=== PATIENT | male | born 1965 | race African-American/Black ===

== ENCOUNTER 2020-01-27 14:40 | Emergency (ER) | payer MEDICAID, SELFPAY ==
[~2020-01-27] VITALS: Ht 182.9 cm; Wt 89.1 kg
--- NOTE | 2020-01-27 15:28 | NUR ---
FIRST CONTACT WITH PT. PT HERE FOR BILATERAL SWOLLEN LEGS, PT REPORTS STARTED ABOUT 2-3 WEEKS, PT REPORTS THAT NORMALLY IT RESOLVES BUT THIS TIME ITS NOT. PT DENIES ANY OTHER SX. PT'S AOX4. RESPS EVEN AND UNLABORED. BP/SPO2 MONITORS IN PLACE. CALL LIGHT WITHIN REACH. PA AT BEDSIDE TO EVALUATE AT THIS TIME.
[2020-01-27 16:08] LABS: BASOPHILS # (AUTO) 0.01 x10^3/uL (0-0.1); BASOPHILS % (AUTO) 0 % (0-1); EOSINOPHILS # (AUTO) 0.02 x10^3/uL (0-0.4); EOSINOPHILS % (AUTO) 1 % (1-7); LYMPHOCYTES # (AUTO) 0.78 x10^3/uL (1-3.4); LYMPHOCYTES % (AUTO) 21 % (22-44); MD NO; MEAN CORPUSCULAR HEMOGLOBIN 31.6 pg (27.5-34.5); MEAN CORPUSCULAR HGB CONC 33.1 g/dL (33.2-36.2); MEAN CORPUSCULAR VOLUME 95.6 fL (81-97); MEAN PLATELET VOLUME 6.4 fL (7.4-10.4); MONOCYTES # (AUTO) 0.57 x10^3/uL (0.2-0.8); MONOCYTES % (AUTO) 16 % (2-9); NEUTROPHILS # (AUTO) 2.28 x10^3/uL (1.8-6.8); NEUTROPHILS % (AUTO) 62 % (42-75); PLATELET COUNT 435 x10^3/uL (130-400); RED BLOOD COUNT 4.18 x10^6/uL (4.38-5.82); RED CELL DISTRIBUTION WIDTH 13.5 % (9.4-14.8)
[2020-01-27 16:15] LABS: ALANINE AMINOTRANSFERASE 18 U/L (12-78); ALBUMIN 3.2 g/dL (3.4-5.0); ANION GAP 5 mmol/L (5-15); CALCIUM 8.5 mg/dL (8.5-10.1); CHLORIDE 102 mmol/L (98-107); CREATININE 1.55 mg/dL (0.7-1.3)
[2020-01-27 16:20] LABS: ALKALINE PHOSPHATASE 72 U/L (45-117); BILIRUBIN,TOTAL 0.4 mg/dL (0.2-1.0); TOTAL PROTEIN 8.5 g/dL (6.4-8.2); TROPONIN I < 0.015 ng/mL (0.000-0.045)
[2020-01-27 17:07] VITALS: BP 139/94
--- NOTE | 2020-01-27 17:07 | NUR ---
PT SLEEPING IN [facility]. RESPS EVEN AND UNLABORED. BP/SPO2 MONITORS IN PLACE. CALL LIGHT WITIN SCOOTER.
--- NOTE | 2020-01-27 17:46 | NUR ---
PT STILL SLEEPING IN [facility]. RESPS EVEN AND UNLABORED. BP/SPO2 MONITORS IN PLACE. CALL LIGHT WITIN REACH. AWAITING DC.
== END 2020-01-27 18:40 | disposition home or self-care (01) ==
LOC: ED 18:30
DX: I87.2 Venous insufficiency (chronic) (peripheral) (principal); R07.89 Other chest pain; R60.0 Localized edema; R94.31 Abnormal electrocardiogram [ECG] [EKG]; F17.200 Nicotine dependence, unspecified, uncomplicated
CPT/HCPCS: 36415; 71045; 80053; 83880; 84484; 85025; 93005; 93970; 99285

== ENCOUNTER 2021-04-01 13:42 | Inpatient (IN) | payer MEDICAID ==
[~2021-04-01] VITALS: Ht 182.9 cm; Wt 76.3 kg
--- NOTE | 2021-04-01 14:08 | NUR ---
THIS IS A 55 YR OLD MALE WHO STATES [place] HISTORY IS [place]. PT STATES WEAKNESS, SOB, LOSS OF APPETITE, AND SELF REPORTED FEVER IN THE BEGINING. PT STATES HAS NOT ATE ANY FOOD IN 16 DAYS. RESPIRATIONS ARE RAPID AND SHALLOW. ADVENTATIOUS LUNGS SOUNDS IN THE BASES. PT PLACED ON CARDIAC, NIBP, AND O2 MONITORING. TECH AT BEDSIDE FOR IV ACCESS, LABS AND CULTURES OBTAINED. PT SINUS TACH ON MONITOR WITH NO ECTOPY. PT STATE VACCINATED FOR COVID WITH 2 SHOTS UNABLE TO IDENTIFY MAKER.
--- NOTE | 2021-04-01 14:32 | NUR ---
REPORT FROM MATT BECK. ASSUMING CARE OF PT. DR. ORDRIGUEZ AT BEDSIDE.
[2021-04-01 14:37] LABS: BASOPHILS % (AUTO) 0 % (0-1); EOSINOPHILS % (AUTO) 0 % (1-7); LYMPHOCYTES % (AUTO) 13 % (22-44); MEAN CORPUSCULAR HEMOGLOBIN 32.2 pg (27.5-34.5); MEAN CORPUSCULAR HGB CONC 34.9 g/dL (33.2-36.2); MEAN PLATELET VOLUME 7.3 fL (7.4-10.4); MONOCYTES % (AUTO) 13 % (2-9); NEUTROPHILS % (AUTO) 74 % (42-75); PLATELET COUNT 333 x10^3/uL (130-400); RED BLOOD COUNT 4.47 x10^6/uL (4.38-5.82); RED CELL DISTRIBUTION WIDTH 14.6 % (9.4-14.8)
[2021-04-01 14:51] LABS: CHLORIDE 98 mmol/L (98-107)
[2021-04-01 15:03] LABS: ALANINE AMINOTRANSFERASE 22 U/L (12-78); ALBUMIN 2.8 g/dL (3.4-5.0); ALKALINE PHOSPHATASE 67 U/L (45-117); ANION GAP 4 mmol/L (5-15); BILIRUBIN,TOTAL 0.7 mg/dL (0.2-1.0); CALCIUM 9.3 mg/dL (8.5-10.1); CREATININE 1.63 mg/dL (0.7-1.3); TOTAL PROTEIN 8.9 g/dL (6.4-8.2); TROPONIN I < 0.015 ng/mL (0.000-0.045)
--- NOTE | 2021-04-01 15:51 | NUR ---
PT RESTING IN BED. VSCharissa. ANA MARIA.
--- NOTE | 2021-04-01 16:07 | NUR ---
Oc guerrero in [facility] - 04/01/21 at 1615 by MIREILLE PT BACK FROM CT
--- NOTE | 2021-04-01 16:39 | NUR ---
PT TO CT. VSS. NADN.
[2021-04-01] MEDS ORDERED: OMNIPAQUE 350 MG/ML, 75ML BOTTLE ONE (16:56)
--- NOTE | 2021-04-01 17:01 | NUR ---
PT BACK FROM CT
[2021-04-01] MEDS ORDERED: HEPARIN 5,000 UNITS/ML, 1ML ONE (17:37)
[2021-04-01] MEDS ORDERED: HEPARIN 25,000 UNITS/250ML PMX 250 ML ONE (17:37)
--- NOTE | 2021-04-01 17:51 | NUR ---
PT MEDICATED PER EMAR. VSS. MABLEN.
[2021-04-01] MEDS ORDERED: HEPARIN 25,000 UNITS/250ML PMX 250 ML IV PRN ×2 (18:00→19:00)
[2021-04-01] MEDS ORDERED: HEPARIN 5,000 UNITS/ML, 1ML IV PRN ×2 (18:00→19:00)
[2021-04-01] MEDS ORDERED: HEPARIN 5,000 UNITS/ML, 1ML IV ONE ×2 (18:00→19:00)
[2021-04-01] MEDS ORDERED: DOCUSATE 100 MG CAPSULE PO PRN (18:30)
[2021-04-01] MEDS ORDERED: hydrALAzine 20 MG/ML, 1ML IVPush PRN (18:30)
[2021-04-01] MEDS ORDERED: HYDROcodone/APAP 5/325 TABLET PO PRN (18:30)
[2021-04-01] MEDS ORDERED: SODIUM CHLORIDE 0.9% 1,000 ML IV SCH (18:30)
[2021-04-01] MEDS ORDERED: POLYETHYLENE GLYCOL 17 GM PACKET PO PRN (18:30)
[2021-04-01] MEDS ORDERED: ACETAMINOPHEN 325 MG TABLET PO PRN (18:30)
[2021-04-01] MEDS ORDERED: LABETALOL 5MG/ML, 20ML IVPush PRN (18:30)
[2021-04-01] MEDS ORDERED: ONDANSETRON ODT 4 MG PO PRN (18:30)
[2021-04-01] MEDS ORDERED: BISACODYL 10 MG SUPP PR PRN (18:30)
[2021-04-01] MEDS ORDERED: ONDANSETRON 2MG/ML, 2ML IVPush PRN (18:30)
--- NOTE | 2021-04-01 18:46 | NUR ---
report recieved from denia zacarias
--- NOTE | 2021-04-01 19:27 | NUR ---
PT ATTEMPTING TO LEAVE AMA, EXPLAINED TO PT THAT HE COULD AND HIS CURRENT NEED FOR 02 IS GOING TO MAKE IT VERY DIFFICULT. PT VERY INSISTANT ON GETTING HOME TO HIS DOG. THIS RN SPOKE WITH PT FOR 10 MIN AND IS AGREEABLE AT THIS TIME BUT STATED MAY LEAVE AMA WHEN GETTING TO THE FLOOR. PT CURRENTLY ON ALL MONITORS, VSS AT THIS TIME
--- NOTE | 2021-04-01 19:40 | NUR ---
THIS RN WENT INTO PT ROOM AGAIN AFTER GIVING REPORT TO KIRAN DUFFY. PT ATTEMPTING TO LEAVE AMA AGAIN UNLESS HE CAN USE A PHONE. PT GIVEN THIS RN'S PERSONAL PHONE AND IS CURRENTLY USING IT. WHEN PT IS DONE, PT TO BE TRANSFFERED UP.
[2021-04-01 20:00] VITALS: BP 119/88
--- NOTE | 2021-04-01 20:08 | NUR ---
PT DONE USING THIS RN'S PHONE. STATED HE STILL WANTS TO LEAVE AMA. THIS RN OFFERED TO CALL [employer] TO GET DOG. PT REFUSED. SPOKE WITH MARIANN CADET. SHE STATED SHE SPOKE WITH PT EARLIER ABOUT RISKS OF LEAVING AND DOES NOT WANT TO SPEAK WITH HIM AT THIS TIME. PT VERY ADIMANT ON LEAVING, PT IS A/O X 4 AND CAPABLE OF MAKIG THIS DECISION.
--- NOTE | 2021-04-01 20:21 | NUR ---
SPOKE WITH PT ONCE AGAIN AND PT STATES HE DOESNT TRUST ANYONE BUT HIS DOG. REINFORCED THE FACT THAT HE MAY . PT STATES HE WILL COME BACK. PT AMBULATED STEADY WITH ALL BELONGINGS AND LEFT THROUGH THE LOBBY. PT SIGNED AMA PAPERWORK AND COPY WAS GIVEN
[2021-04-02 08:32] LABS: CALCIUM 8.2 mg/dL (8.5-10.1)
[2021-04-02 08:34] LABS: CREATININE 1.23 mg/dL (0.7-1.3)
[2021-04-02 08:38] LABS: BASOPHILS % (AUTO) 1 % (0-1); EOSINOPHILS % (AUTO) 0 % (1-7); LYMPHOCYTES % (AUTO) 15 % (22-44); MEAN CORPUSCULAR HEMOGLOBIN 31.5 pg (27.5-34.5); MEAN CORPUSCULAR HGB CONC 33.4 g/dL (33.2-36.2); MEAN PLATELET VOLUME 7.4 fL (7.4-10.4); MONOCYTES % (AUTO) 13 % (2-9); NEUTROPHILS % (AUTO) 71 % (42-75); PLATELET COUNT 309 x10^3/uL (130-400); RED BLOOD COUNT 3.82 x10^6/uL (4.38-5.82); RED CELL DISTRIBUTION WIDTH 14.3 % (9.4-14.8)
[2021-04-02 08:54] LABS: ANION GAP 3 mmol/L (5-15); CHLORIDE 105 mmol/L (98-107)
== END 2021-04-02 01:25 | disposition home or self-care (01) | DRG 175 ==
LOC: ED 18:15 → EDIP 19:41 → 5SO 04-02 00:35
PROVIDERS: ADMIT Family Medicine; ATTEND Family Medicine
DX: I26.09 Other pulmonary embolism with acute cor pulmonale (principal); E87.1 Hypo-osmolality and hyponatremia; N17.9 Acute kidney failure, unspecified; E87.2 Acidosis; F17.210 Nicotine dependence, cigarettes, uncomplicated; I50.9 Heart failure, unspecified; Z86.718 Personal history of other venous thrombosis and embolism; Z79.899 Other long term (current) drug therapy
CPT/HCPCS: 36415; 71045; 71275; 80048; 80053; 83605; 83880; 84145; 84484; 85025; 85520; 87040; 93005; 96374; J1644; Q9967

== ENCOUNTER 2021-04-01 21:44 | Inpatient (IN) | payer MEDICAID ==
[~2021-04-01] VITALS: Ht 182.9 cm; Wt 78.2 kg
[2021-04-01] MEDS ORDERED: SODIUM CHLORIDE FLUSH 10ML SYR IVF ONE (22:00)
[2021-04-01] MEDS ORDERED: ONDANSETRON 2MG/ML, 2ML ONE (22:25)
[2021-04-01] MEDS ORDERED: MORPHINE SULFATE 4 MG/ML, 1ML ONE (22:26)
[2021-04-01] MEDS ORDERED: MORPHINE SULFATE 4 MG/ML, 1ML IVPush PRN (22:30)
[2021-04-01] MEDS ORDERED: ONDANSETRON 2MG/ML, 2ML IVPush PRN ×2 (22:30→23:00)
[2021-04-01] MEDS ORDERED: HEPARIN 5,000 UNITS/ML, 1ML IV ONE ×2 (22:30)
[2021-04-01] MEDS ORDERED: SODIUM CHLORIDE 0.9% 1,000 ML IV ONE (22:30)
[2021-04-01] MEDS ORDERED: HEPARIN 25,000 UNITS/250ML PMX 250 ML IV PRN ×2 (22:30)
[2021-04-01] MEDS ORDERED: [UNRECOGNIZED DRUG - OTHER] MC SCH (22:30)
[2021-04-01 22:47] LABS: TROPONIN I < 0.015 ng/mL (0.000-0.045)
[2021-04-01] MEDS ORDERED: POLYETHYLENE GLYCOL 17 GM PACKET PO PRN (23:00)
[2021-04-01] MEDS ORDERED: SODIUM CHLORIDE 0.9% 1,000 ML IV SCH (23:00)
[2021-04-01] MEDS ORDERED: BISACODYL 10 MG SUPP PR PRN (23:00)
[2021-04-01] MEDS ORDERED: ACETAMINOPHEN 325 MG TABLET PO PRN (23:00)
[2021-04-01] MEDS ORDERED: hydrALAzine 20 MG/ML, 1ML IVPush PRN (23:00)
[2021-04-01] MEDS ORDERED: LABETALOL 5MG/ML, 20ML IVPush PRN (23:00)
[2021-04-01] MEDS ORDERED: ONDANSETRON ODT 4 MG PO PRN (23:00)
--- NOTE | 2021-04-01 23:14 | NUR ---
REPORT GIVEN TO KIRAN DUFFY
--- NOTE | 2021-04-01 23:45 | NUR ---
AWAITING ANTI XA BEFORE HANGING DRIP. ANUJA FROM PHARMACY STATES OK TO GIVE BOLUS AND START DRIP SINCE PT WAS OUT OF HOSPITAL FOR OVER 3 HOURS
[2021-04-01] MEDS ORDERED: HEPARIN 5,000 UNITS/ML, 1ML ONE (23:51)
[2021-04-01] MEDS ORDERED: HEPARIN 25,000 UNITS/250ML PMX 250 ML ONE (23:51)
[2021-04-02 00:03] LABS: INTERNATIONAL NORMALIZED RATIO 1.04 (0.93-1.1); PARTIAL THROMBOPLASTIN TIME 29 Seconds (25-31); PROTHROMBIN TIME 11.1 Seconds (9.6-11.5)
[2021-04-02 00:45] VITALS: BP 119/81
[2021-04-02] MEDS: HYDROcodone/APAP 5/325 TABLET PO PRN ×4 (01:32→23:02)
[2021-04-02] MEDS ORDERED: HEPARIN 25,000 UNITS/250ML PMX 250 ML IV PRN (02:00)
[2021-04-02 07:41] LABS: AMPHETAMINE SCREEN, URINE Negative (Negative); BARBITURATE SCREEN, URINE Negative (Negative); BENZODIAZEPINE SCREEN, URINE Negative (Negative); CANNABINOID SCREEN, URINE Negative (Negative); COCAINE SCREEN, URINE Negative (Negative); METHADONE SCREEN, URINE Negative (Negative); OPIATE SCREEN, URINE Positive (Negative)
[2021-04-02 07:54] VITALS: BP 101/68
[2021-04-02] MEDS: HEPARIN 5,000 UNITS/ML, 1ML IV PRN (09:21)
[2021-04-02 14:34] VITALS: BP 122/89
[2021-04-02] MEDS ORDERED: NITROGLYCERIN 0.4 MG BOTTLE (25 TABS) SL PRN (15:30)
[2021-04-02 15:46] LABS: TROPONIN I < 0.015 ng/mL (0.000-0.045)
[2021-04-02] MEDS: SENNA/DOCUSATE TABLET PO SCH (17:34)
[2021-04-02 18:36] VITALS: BP 110/74
[2021-04-03] MEDS: HEPARIN 5,000 UNITS/ML, 1ML IV PRN (00:12)
[2021-04-03 00:57] VITALS: BP 117/83
[2021-04-03 06:30] VITALS: BP 109/73
[2021-04-03] MEDS: SENNA/DOCUSATE TABLET PO SCH (09:00)
[2021-04-03 12:05] VITALS: BP 129/87
[2021-04-03] MEDS ORDERED: HEPARIN 25,000 UNITS/250ML PMX 250 ML ONE (16:07)
[2021-04-03] MEDS ORDERED: HEPARIN 25,000 UNITS/250ML PMX 250 ML IV PRN ×2 (16:30)
[2021-04-03 20:45] VITALS: BP 112/72
[2021-04-03] MEDS: APIXABAN 5 MG TABLET PO SCH (21:06)
[2021-04-04 01:29] VITALS: BP 119/84
[2021-04-04 06:25] VITALS: BP 114/77
[2021-04-04] MEDS ORDERED: APIX5TAB PO (08:32)
[2021-04-04] MEDS: APIXABAN 5 MG TABLET PO SCH (09:00)
[2021-04-04] MEDS: SENNA/DOCUSATE TABLET PO SCH (09:00)
== END 2021-04-04 11:42 | disposition home or self-care (01) | DRG 175 ==
LOC: ED 04-02 00:30 → EDIP 04-02 01:24 → 5SO 04-02 01:26
PROVIDERS: ADMIT Family Medicine; ATTEND Family Medicine
DX: I26.09 Other pulmonary embolism with acute cor pulmonale (principal); J96.91 Respiratory failure, unspecified with hypoxia; E87.1 Hypo-osmolality and hyponatremia; E87.2 Acidosis; F17.210 Nicotine dependence, cigarettes, uncomplicated; I11.0 Hypertensive heart disease with heart failure; I50.9 Heart failure, unspecified; I87.2 Venous insufficiency (chronic) (peripheral); R00.0 Tachycardia, unspecified; Z86.711 Personal history of pulmonary embolism; Z86.718 Personal history of other venous thrombosis and embolism; Z91.19 Patient's noncompliance with other medical treatment and regimen; Z71.6 Tobacco abuse counseling
CPT/HCPCS: 36415; 80307; 83880; 84484; 85520; 85610; 85730; 93005; 93306; 93356; 96374; 96375; G0378; J1644; J2405; J2270; J7030